=== PATIENT | female | born 1960 | race African-American/Black ===

== ENCOUNTER 2017-01-11 15:37 | Emergency (ER) | payer OTHER ==
[~2017-01-11] VITALS: Wt 89.0 kg
[~2017-01-11 15:37] MED LIST: DOCU-144 PO; HYDR-3498 PO; OMEP40CA3 PO; ONDA4TAB35 PO; TRAM50TA2 PO
[2017-01-11] MEDS ORDERED: IBUP-1542 PO (18:24)
[2017-01-11] MEDS ORDERED: ALPR0.5T PO (18:24)
[2017-01-11] MEDS ORDERED: IBUPROFEN 600 MG TAB PO ONE (18:30)
--- NOTE | 2017-01-11 18:30 | ERD ---
ER Documentation Chief Complaint Date/Time DATE: 01/11/17 TIME: 18:25 Chief Complaint r side chest pain for a few months. pain on inspiration . no trauma HPI 56-year-old woman with complaints of sharp intermittent right-sided chest pain 1 week as well as right low back pain radiating down the right leg described as burning and paresthesias. She has had these symptoms in the past, she has had intermittent similar chest pain 1 year and similar right-sided low back pain 2 years. She has had multiple previous workups including CT scans, hip x-ray, and lumbar spine x-ray all of which have been unremarkable. Patient does not use any analgesics or medications for the symptoms, although her primary care physician has in the past prescribed Neurontin. She denies weight loss, no difficulty ambulating, no exertional chest pain, no cough, no fevers or chills, no headache or blurry vision. ROS All systems reviewed and are negative except as per history of present illness. Medications Home Meds Active Scripts Alprazolam* (Xanax*) 0.5 Mg Tab, 0.5 MG PO TID for PAIN, #9 TAB Prov:SYDNEE MALLORY MD 01/11/17 Ibuprofen* (Ibuprofen*) 600 Mg Tablet, 600 MG PO Q8 for PAIN AND/OR INFLAMMATION , #30 TAB Prov:SYDNEE MALLORY MD 01/11/17 Discontinued Reported Medications Omeprazole* (Prilosec*) 40 Mg Capsule.dr, 40 MG PO DAILY, CAP 07/20/14 Discontinued Scripts Ondansetron Hcl* (Zofran* ODT) 4 mg -ODT Tab.disper, 4 MG PO Q6 Y for NAUSEA AND /OR VOMITING, #30 TAB Prov:JM ROJAS MD 05/20/16 Hydrocodone Bit-Acetaminophen* ([place]*) 5-325 Mg Tab, 1 TAB PO Q6 Y for PAIN, # 7 TAB Prov:JM ROJAS MD 05/20/16 Docusate Sodium* (Colace*) 100 Mg Capsule, 100 MG PO TID, #30 CAP Prov:KADEN REED 05/17/16 Tramadol HCl (Tramadol HCl) 50 Mg Tablet, 50 MG PO Q4 Y for PAIN, #20 TAB Prov:KADEN REED 05/17/16 Allergies Allergies: Coded Allergies: aspirin (Verified Allergy, Intermediate, 01/11/17) gabapentin (Verified Allergy, Unknown, swelling, 01/11/17) Uncoded Allergies: PACETAMOL (Allergy, Unknown, 07/20/14) PMhx/Soc Chronic recurrent pain of the low back worse on the right side, gastritis, anxiety History of Surgery: No Anesthesia Reaction: No Hx Neurological Disorder: No Hx Respiratory Disorders: No Hx Cardiac Disorders: No Hx Psychiatric Problems: No Hx Miscellaneous Medical Probl: No Hx Alcohol Use: No Hx Substance Use: No Hx Tobacco Use: No Smoking Status: Never smoker FmHx Family History: No diabetes Physical Exam Vitals Vital Signs Date Time Temp Pulse Resp B/P Pulse Ox O2 Delivery O2 Flow Rate FiO2 01/11/17 18:57 68 18 113/76 98 Room Air 01/11/17 15:44 98.9 78 20 121/76 100 Physical Exam GENERAL: Well-developed, is anxious HEENT: Moist mucous membranes, pink conjunctiva, no cervical spine tenderness or step-off deformities, no goiter, no jaundice or icterus, extraocular movements intact without pain. No submandibular induration, and no pharyngeal erythema NEURO: Alert and oriented 3, cranial nerves II through XII intact bilaterally, pupils equal round reactive to light, no focal deficits or facial asymmetry, sensation intact distally Strength 5/5 in upper and lower extremities bilaterally CARDIAC: Regular rate and rhythm, no murmurs rubs or gallops LUNGS: Clear bilaterally no wheezing crackles or stridor ABDOMEN: Soft nontender, no guarding, no rigidity, no rebound, no psoas sign no obturator sign. Normoactive bowel sounds SKIN: Warm and dry to touch, no abrasions, contusions, or hematomas, no lacerations, no ecchymosis, no target lesions, and without ulcers EXTREMITIES: No clubbing cyanosis or edema, calves are bilaterally symmetrical, no Homans sign, no popliteal cord sign. Distal pulses equal and bilateral PSYCH: Anxious Results 24 hrs Laboratory Tests Test 01/11/17 18:35 Troponin I < 0.012ng/ml Current Medications Medications (Trade) Dose Ordered Sig/Dat Route PRN Reason Start Time Stop Time Status Last Admin Dose Admin Ibuprofen (Motrin) 600 mg ONCE ONCE PO 01/11/17 18:30 01/11/17 18:31 DC 01/11/17 19:03 Procedures/MDM Patient was placed on cardiac rehabilitation program director rhythm strip revealed a sinus rhythm at about 80 bpm with upright P and T waves. Patient was afebrile. I administered ibuprofen 600 mg p.o. for her symptoms and reviewed her past medical records and imaging studies. EKG performed, read by me: 78 bpm, normal sinus rhythm, normal axis, no acute ST segment changes, narrow QRS complex, with good R-wave progression in precordial leads. Troponin was negative. Differential diagnoses considered, included but not limited to acute coronary syndrome, pulmonary embolism, aortic dissection, abdominal aortic aneurysm, sepsis, stroke, meningitis, encephalitis, pneumonia, appendicitis, cholecystitis , bowel obstruction, pyelonephritis, nephrolithiasis, cystitis, as well as metabolic, hematologic, and electrolyte abnormalities. As well as abscess, cellulitis, fractures, and dislocations. Patient feels much better at this time, and vital signs are normal, symptoms have improved. I did give strict instructions to return to the ED if symptoms continue or worsen, patient will otherwise follow-up with primary care physician. Patient understood instructions and agreed to plan. Departure Diagnosis: Primary Impression: Sciatic leg pain Additional Impression: Chest pain Chest pain type: unspecified Qualified Code: R07.9 - Chest pain, unspecified type Condition: Good Patient Instructions: Back Pain W/ Sciatica SYDNEE MALLORY MD Jan 11, 2017 18:30
[2017-01-11 20:13] VITALS: BP 126/89; PULSE 68; RESP 19; TEMP 98.7
== END 2017-01-11 20:15 | disposition home or self-care (01) ==
LOC: E/R 15:37
DX: M54.41 Lumbago with sciatica, right side (principal); R40.2142 Coma scale, eyes open, spontaneous, at arrival to emergency department; R40.2362 Coma scale, best motor response, obeys commands, at arrival to emergency department; R40.2252 Coma scale, best verbal response, oriented, at arrival to emergency department
CPT/HCPCS: 84484; 93005; Z7610

== ENCOUNTER 2017-09-02 07:42 | Emergency (ER) | payer OTHER ==
[~2017-09-02] VITALS: Ht 175.3 cm; Wt 90.8 kg
[~2017-09-02 07:42] MED LIST changes: +ALPR0.5T PO; -DOCU-144 PO; -HYDR-3498 PO; +IBUP-1542 PO; -OMEP40CA3 PO; -ONDA4TAB35 PO; -TRAM50TA2 PO
[2017-09-02 07:46] VITALS: Ht 175.3 cm; Wt 90.8 kg
[2017-09-02 08:17] VITALS: BP 114/79; PULSE 68; RESP 14
--- NOTE | 2017-09-02 08:21 | RADRPT ---
PROCEDURE: XR Chest. CLINICAL INDICATION: Chest pain TECHNIQUE: Frontal chest x-ray was obtained. COMPARISON: Chest x-ray May 17, 2016 FINDINGS: Heart is not enlarged. Mediastinum is not widened. No hilar masses seen. Lungs clear of any infiltra luba. There is no effusion or pneumothorax. IMPRESSION: No evidence for active cardiopulmonary disease. .Shyam Mcintyre MD, MD Date Time Electronically viewed and signed by .Shyam Mcintyre MD, on 09/02/2017 08:21 .A/
[2017-09-02] MEDS ORDERED: IBUPROFEN 800 MG TAB PO ONE (08:30)
[2017-09-02] MEDS ORDERED: IBUP-1542 PO (09:29)
--- NOTE | 2017-09-02 09:31 | ERD ---
ER Documentation Chief Complaint Chief Complaint Complains of chest pain since this am HPI Patient is a 57-year-old female with no medical problems who presents with chest pain. She has right-sided chest pain that started 1 week ago. The pain is constant and sharp in nature. The patient tried hot water. She has right- sided arm numbness as well. She said that it hurts worse with breathing. She has had no fevers and no cough. She complains of sore throat and says that there is a ball at the right forearm. She tried ibuprofen. She has not called her primary doctor as of yet. Upon review of old medical records the patient has multiple visits to the ER since 2012. ROS All systems reviewed and are negative except as per history of present illness. Medications Home Meds Active Scripts Ibuprofen* (Motrin*) 600 Mg Tab, 600 MG PO Q6H Y for PAIN AND OR ELEVATED TEMP, #30 TAB Prov:JM ROJAS MD 09/02/17 Alprazolam* (Xanax*) 0.5 Mg Tab, 0.5 MG PO TID for PAIN, #9 TAB Prov:SYDNEE MALLORY MD 01/11/17 Ibuprofen* (Ibuprofen*) 600 Mg Tablet, 600 MG PO Q8 for PAIN AND/OR INFLAMMATION , #30 TAB Prov:SYDNEE MALLORY MD 01/11/17 Allergies Allergies: Coded Allergies: aspirin (Verified Allergy, Intermediate, 01/11/17) gabapentin (Verified Allergy, Unknown, swelling, 01/11/17) Uncoded Allergies: PACETAMOL (Allergy, Unknown, 07/20/14) PMhx/Soc Medical and Surgical Hx: pt denies Medical Hx, pt denies Surgical Hx History of Surgery: No Anesthesia Reaction: No Hx Neurological Disorder: No Hx Respiratory Disorders: No Hx Cardiac Disorders: No Hx Psychiatric Problems: No Hx Miscellaneous Medical Probl: No Hx Alcohol Use: No Hx Substance Use: No Hx Tobacco Use: No Smoking Status: Never smoker FmHx Family History: No coronary disease Physical Exam Vitals Vital Signs Date Time Temp Pulse Resp B/P Pulse Ox O2 Delivery O2 Flow Rate FiO2 09/02/17 08:17 68 14 114/79 99 Room Air 09/02/17 07:46 97.7 79 20 142/81 98 Physical Exam Const: No acute distress Head: Atraumatic Eyes: Normal Conjunctiva ENT: Normal External Ears, Nose and Mouth. Neck: Full range of motion..~ No meningismus. Resp: Clear to auscultation bilaterally Cardio: Regular rate and rhythm, no murmurs Abd: Soft, non tender, non distended. Normal bowel sounds Skin: No petechiae or rashes Back: No midline or flank tenderness Ext: No cyanosis, or edema Neur: Awake and alert Psych: Normal Mood and Affect Results 24 hrs Current Medications Medications (Trade) Dose Ordered Sig/Dat Route PRN Reason Start Time Stop Time Status Last Admin Dose Admin Ibuprofen (Motrin) 800 mg ONCE ONCE PO 09/02/17 08:30 09/02/17 08:31 DC 09/02/17 08:15 Procedures/MDM EKG read by me: Rate/Rhythm: Regular rate and rhythm at a rate of 76 Intervals: Normal Impression: No evidence of ischemia or arrhythmia Chest x-ray negative per radiology. Ultrasound of the right upper extremity negative for DVT per radiology. Patient is a 57-year-old female with no medical problems who presents with right -sided chest pain. The patient has a normal EKG and a normal chest x-ray. Ultrasound of the right upper extremity shows no DVT. At this point I doubt acute coronary syndrome, pneumonia, pneumothorax, or pulmonary embolism. I believe outpatient management is appropriate. The patient will need to follow- up closely with Dr. Mills her primary doctor within 24-48 hours for evaluation. She can return sooner for any worsening symptoms. She will be given a prescription for ibuprofen for pain and inflammation reduction. Departure Diagnosis: Primary Impression: Chest pain Chest pain type: unspecified Qualified Code: R07.9 - Chest pain, unspecified type Condition: Fair Patient Instructions: Chest Pain, Uncertain Cause Referrals: OMID MILLS (PCP) Additional Instructions: Call your primary care doctor TOMORROW for an appointment during the next 1-2 days.See the doctor sooner or return here if your condition worsens before your appointment time. JM ROJAS MD Sep 02, 2017 09:31
--- NOTE | 2017-09-02 09:31 | RADRPT ---
PROCEDURE: US upper extremity Venous. CLINICAL INDICATION: right arm swelling TECHNIQUE: Multiple sonographic images of the right upper extremity venous system was obtained uti lizing grayscale, color-flow, compressive sonography and doppler imaging with augmentation. The papo ges were reviewed on a PACS workstation. COMPARISON: None. FINDINGS: There is normal compressibility and flow within the right internal jugular vein, subclavian vein, ax illary vein, brachial, basilic, cephalic, radial and ulnar veins. No solid mass or focal fluid collection is visualized at site of palpable abnormality in the upper a rm. IMPRESSION: No sonographic evidence for venous thrombosis. No mass or hematoma visualized. .Shyam Mcintyre MD, Date Time Electronically viewed and signed by .Shyam Mcintyre MD, on 09/02/2017 09:31 .A/
== END 2017-09-02 10:15 | disposition home or self-care (01) ==
LOC: E/R 07:42
DX: R07.9 Chest pain, unspecified (principal); R40.2252 Coma scale, best verbal response, oriented, at arrival to emergency department
CPT/HCPCS: 71010; 93971; Z7502; Z7610; 93005

== ENCOUNTER 2017-11-23 11:02 | Day surgery (SDC) | END 2017-11-23 16:18 | disposition home or self-care (01) ==

== ENCOUNTER 2017-12-17 18:23 | Emergency (ER) | END 2017-12-18 00:21 | disposition home or self-care (01) ==

== ENCOUNTER 2017-12-24 18:26 | Emergency (ER) | END 2017-12-25 | disposition home or self-care (01) ==

== ENCOUNTER 2018-06-30 19:59 | Emergency (ER) | END 2018-06-30 23:13 | disposition home or self-care (01) ==

== ENCOUNTER 2018-07-21 21:32 | Emergency (ER) | END 2018-07-22 02:48 | disposition home or self-care (01) ==

== ENCOUNTER 2018-12-15 23:27 | Emergency (ER) | payer OTHER ==
[~2018-12-15] VITALS: Ht 170.2 cm; Wt 88.7 kg
[~2018-12-15 23:27] MED LIST changes: +ACET325T33 PO; +ALBU8.5H8 INH; -ALPR0.5T PO; +AZIT250T PO; +BACL10TA PO; +BENZ-6 PO; +FLUT9.9S NASAL; +HYDR25SU23 PR; -IBUP-1542 PO; +MAGN296S40 PO; +NAPR-688 PO; +OMEPRAZOLE PO; +POLY17PO6 PO; +RANI150T35 PO; +TRAM50TA2 PO
[2018-12-15 23:39] VITALS: Ht 170.2 cm; Wt 88.7 kg
[2018-12-16] MEDS ORDERED: SOD CHLORIDE 0.9% 1,000 ML IV STA (02:14)
[2018-12-16] MEDS ORDERED: KETOROLAC 30 MG INJ IV STA (02:14)
[2018-12-16] MEDS ORDERED: AZIT250T PO (03:58)
--- NOTE | 2018-12-16 03:59 | ERD ---
ER Documentation Chief Complaint Chief Complaint CP, cough x 1 week fatigue, ST HPI 58-year-old female with no known past medical history presenting with chest pain with coughing for 1 week, associated fevers and chills, and sore throat. Her symptoms have been worsening over the past 1 week. She complains of severe throat pain, worse with swallowing. She also has shortness of breath. She complains of aching substernal chest pain, worse with deep breathing. No nausea or vomiting. She has been taking Tylenol for her symptoms without much relief. ROS All systems reviewed and are negative except as per history of present illness. Medications Home Meds Active Scripts Azithromycin* (Zithromax*) 250 Mg Tablet, 250 MG PO .ZPACK DIRECTED, #6 TAB TAKE 500 MG (2 TABS) THE FIRST DAY THEN 250 MG (1 TAB) DAYS 2-5 Prov:HILLARY MARTIN MD 12/16/18 Benzonatate* (Tessalon [place]*) 100 Mg Capsule, 100 MG PO Q8H PRN for COUGH, #20 CAP Prov:BO GODFREY 11/11/18 Albuterol Sulfate* (Proair HFA*) 8.5 Gm Hfa.aer.ad, 2 PUFF INH Q4 PRN for WHEEZING, #1 INHALER Prov:BO GODFREY 11/11/18 Azithromycin* (Zithromax*) 250 Mg Tablet, 250 MG PO .ZPACK DIRECTED, #6 TAB TAKE 500 MG (2 TABS) THE FIRST DAY THEN 250 MG (1 TAB) DAYS 2-5 Prov:BO GODFREY 11/11/18 Ranitidine Hcl* (Zantac*) 150 Mg Tablet, 150 MG PO BID, #60 TAB 1 Refill Prov:DIONNA PANDA DO 07/22/18 Hydrocortisone Acetate (Anusol-Hc) 25 Mg Supp.rect, 25 MG MS BID, #14 SUPP.RECT Prov:DIONNA PANDA DO 07/22/18 Naproxen* (Naproxen*) 500 Mg Tablet, 500 MG PO BID PRN for PAIN, #20 TAB 2 Refills Prov:DIONNA PANDA DO 07/22/18 Magnesium Citrate* (Magnesium Citrate*) 296 Ml Solution, 296 ML PO ONCE, #1 BOTTLE Prov:DIONNA PANDA DO 07/22/18 Polyethylene Glycol* (Miralax*) 17 Gm Powd.pack, 17 GM PO DAILY PRN for CONSTIPATION, #20 Prov:DIONNA PANDA DO 07/22/18 Fluticasone Propionate (Flonase Allergy Relief) 9.9 Ml [place].susp, 1 SPRAY NASAL BID, #1 BOTTLE TO EACH NOSTRIL Prov:FELICITAS,ERICA X. CASCADE OPERATOR 06/30/18 Acetaminophen* (Tylenol*) 325 Mg Tablet, 2 TAB PO Q6 PRN for PAIN AND OR ELEVATED TEMP, #20 TAB Prov:KADEN JOVEL PA-C 12/24/17 Baclofen* (Baclofen*) 10 Mg Tablet, 10 MG PO TID for 5 Days, #15 TAB Prov:KODI AVILES MD 12/17/17 Tramadol HCl (Tramadol HCl) 50 Mg Tablet, 50 MG PO Q6 PRN for PAIN, #20 TAB Prov:KODI AVILES MD 12/17/17 Reported Medications [Omeprazole] No Conflict Check, PO 11/23/17 Allergies Allergies: Coded Allergies: aspirin (Verified Allergy, Intermediate, 01/11/17) gabapentin (Verified Allergy, Unknown, swelling, 01/11/17) PMhx/Soc Medical and Surgical Hx: pt denies Medical Hx, pt denies Surgical Hx History of Surgery: No Anesthesia Reaction: No Hx Neurological Disorder: No Hx Respiratory Disorders: No Hx Cardiac Disorders: No Hx Psychiatric Problems: No Hx Miscellaneous Medical Probl: No Hx Alcohol Use: No Hx Substance Use: No Hx Tobacco Use: No Smoking Status: Never smoker FmHx Family History: No diabetes, No coronary disease Physical Exam Vitals Vital Signs Date Temp Pulse Resp B/P (MAP) Pulse Ox O2 O2 Flow FiO2 Time Delivery Rate 12/16/18 100.3 90 25 107/64 100 Room Air 01:43 (78) 12/15/18 100.3 100 20 131/81 98 23:39 (98) Physical Exam Const: No acute distress Head: Atraumatic Eyes: Normal Conjunctiva ENT: Normal External Ears, Nose and Mouth. Neck: Full range of motion. No meningismus. Resp: Clear to auscultation bilaterally Cardio: Regular rate and rhythm, no murmurs. 2+ distal pulses in all 4 extremities Abd: Soft, non tender, non distended. Normal bowel sounds Skin: No petechiae or rashes Back: No midline or flank tenderness Ext: No cyanosis, or edema Neur: Awake and alert Psych: Normal Mood and Affect Result Diagram: 12/16/18 0236 12/16/18 0236 Results 24 hrs Laboratory Tests Test 12/16/18 02:36 White Blood Count 9.0 10^3/ul Red Blood Count 4.67 10^6/ul Hemoglobin 13.3 g/dl Hematocrit 40.3 % Mean Corpuscular Volume 86.3 fl Mean Corpuscular Hemoglobin 28.5 pg Mean Corpuscular Hemoglobin Concent 33.0 g/dl Red Cell Distribution Width 13.5 % Platelet Count 183 10^3/UL Mean Platelet Volume 9.6 fl Immature Granulocytes % 0.400 % Neutrophils % 80.8 % Lymphocytes % 10.5 % Monocytes % 7.5 % Eosinophils % 0.6 % Basophils % 0.2 % Nucleated Red Blood Cells % 0.0 /100WBC Immature Granulocytes # 0.040 10^3/ul Neutrophils # 7.3 10^3/ul Lymphocytes # 1.0 10^3/ul Monocytes # 0.7 10^3/ul Eosinophils # 0.1 10^3/ul Basophils # 0.0 10^3/ul Nucleated Red Blood Cells # 0.0 10^3/ul Sodium Level 144 mmol/L Potassium Level 3.7 mmol/L Chloride Level 110 mmol/L Carbon Dioxide Level 26 mmol/L Anion Gap 8 Blood Urea Nitrogen 11 mg/dl Creatinine 0.62 mg/dl Est Glomerular Filtrat Rate mL/min > 60 mL/min Glucose Level 92 mg/dl Calcium Level 9.4 mg/dl Troponin I < 0.012 ng/ml Current Medications Medications Dose Sig/Dat Start Time Status Last (Trade) Ordered Route PRN Stop Time Admin Dose Reason Admin Sodium 1,000 ml @ Q1H STAT 12/16/18 DC 12/16/18 Chloride 1,000 mls/hr IV 02:14 12/16/18 02:50 03:13 Ketorolac 30 mg ONCE STAT 12/16/18 DC 12/16/18 Tromethamine IV 02:14 12/16/18 02:49 (Toradol) 02:17 Procedures/MDM EMERGENT LABS AND DIAGNOSTIC STUDIES: Lab Results above were reviewed and interpreted by me. CBC: no anemia or evidence of infection BMP: No evidence of electrolyte abnormality, renal failure, hypoglycemia Troponin within normal limits, not indicative of cardiac ischemia Influenza negative 12-lead EKG was interpreted by Merlene Martin MD: Normal Sinus Rhythm Normal axis Normal intervals No acute ST or T wave changes suggestive of acute ischemia or STEMI. Radiology reviewed by Oscar Martin MD: Chest X-ray 1V Interpreted by me: Soft Tissue: No acute abnormalities Bones: No acute abnormalities Mediastinum/Cardiac Silhouette/Lungs: [No acute abnormalities] Initial Nursing notes reviewed. Previous Medical Records requested via the Electronic Health Record. EMERGENCY DEPARTMENT COURSE / MEDICAL DECISION MAKING: Patient is presenting with symptoms consistent with bronchitis, likely viral or bacterial in etiology. I have a low suspicion for associated pneumonia. Patients symptoms have stabilized while in the department after therapy. Vitals and respiratory status are stable. Patient is appropriate for outpatient treatment with antibiotics and inhaler. Recommended continued follow up with PCP in the next 2 days. If symptoms are not improving or worsening, patient instructed to return to ED for repeat evaluation. Patient's blood pressure was elevated (>120/80) but appears stable without evidence of hypertensive emergency or urgency. The patient was counseled about the risks of hypertension and urged to pursue outpatient monitoring and therapy within a week with their primary care physician. Departure Diagnosis: Primary Impression: Lower respiratory tract infection Additional Impression: Pleurisy Condition: Stable Patient Instructions: Pleurisy, Bronchitis, Antiobiotic Treatment (Adult) HILLAYR MARTIN MD Dec 16, 2018 03:59
[2018-12-16 04:30] VITALS: BP 108/84; PULSE 85; RESP 14
== END 2018-12-16 04:30 | disposition home or self-care (01) ==
LOC: E/R 23:27
DX: J22 Unspecified acute lower respiratory infection (principal); R09.1 Pleurisy
CPT/HCPCS: 36415; 71045; 80048; 84484; 85025; 87400; 93005; 96374; J1885; J7030; Z7502